=== PATIENT | female | born 1950 | race Caucasian/White ===

== ENCOUNTER 2018-06-29 10:50 | Outpatient (CLI) | payer OTHER, SELFPAY ==
[2018-06-29 11:58] LABS: CREATININE 0.73 mg/dL (0.55-1.02); Cholesterol 275 mg/dL (50-200); Glucose 104 mg/dL (70-100); HDL Cholesterol 49 mg/dL (40-60); LDL CHOLESTEROL 183 mg/dL (<100); Potassium 4.2 mmol/L (3.5-5.1); Triglyceride 181 mg/dL (30-150)
== END 2018-06-29 11:10 ==
PROVIDERS: PCP General Practice; Visit Provider General Practice
DX: Z00.00 Encounter for general adult medical examination without abnormal findings (principal); I10 Essential (primary) hypertension
CPT/HCPCS: 36415; 80061; 82947; 83721; 82565; 84132

== ENCOUNTER 2018-06-29 15:10 | Outpatient (CLI) | payer OTHER, SELFPAY ==
--- NOTE | 2018-06-29 13:01 | DI.RAD_ITS ---
SYMPTOMS/DIAGNOSIS: F/U PNEUMONIA 2 WEEKS AGO, SHORTNESS OF BREATH PA AND LATERAL CHEST: Comparison is made with October,. The heart size is normal. The aorta is mildly tortuous. The lungs appear clear. No infiltrate, effusion or mass is identified. Degenerative changes and scoliosis are noted in the spine. IMPRESSION: No acute abnormality.
== END 2018-06-29 15:30 ==
PROVIDERS: PCP General Practice; Visit Provider General Practice
DX: R06.02 Shortness of breath (principal); J18.9 Pneumonia, unspecified organism
CPT/HCPCS: 71046

== ENCOUNTER 2020-06-16 15:05 | Outpatient (REF) | payer SELFPAY ==
[2020-06-16 13:12] LABS: HCT 45.1 % (36.0-46.0); HGB 14.6 g/dL (11.2-15.7); MCH 29.9 pg (27.0-33.0); MCHC 32.4 % (32.0-36.0); MCV 92.2 fL (80-95); MPV 10.2 fL (8.0-11.0); Platelet Count 290 10^3/uL (130-400); RBC 4.89 10^6/uL (3.93-5.22); RDW 14.1 % (11.7-14.6); RDW-SD 48.2 fL; WBC 7.28 10^3/uL (4.4-10.8)
[2020-06-16 13:16] LABS: ALT 36 U/L (14-59); AST 22 U/L (15-37); Alkaline Phosphatase 67 U/L (46-116); Anion Gap 9.2 mmol/L (3-11); BUN 13 mg/dL (7-18); Bilirubin, Total 0.5 mg/dL (0.2-1.0); CO2 27.8 mmol/L (21.0-32.0); CREATININE 0.7 mg/dL (0.55-1.02); Calculated LDL 164 mg/dL (<100); Chloride 103 mmol/L (98-107); Cholesterol 247 mg/dL (<200); Glucose 110 mg/dL (74-106); HDL Cholesterol 53 mg/dL (40-60); Potassium 4.4 mmol/L (3.5-5.1); Sodium 140 mmol/L (136-145); TSH (W/Ref FT4) 0.87 uIU/mL (0.36-3.74); Total Protein 7.5 g/dL (6.4-8.2); Triglyceride 152 mg/dL (<150)
[2020-06-16 13:23] LABS: Calcium 9.2 mg/dL (8.5-10.1)
[2020-06-16 13:36] LABS: Hemoglobin A1C 5.9 % (<5.7)
== END 2020-06-16 15:06 | disposition home or self-care (01) ==
LOC: NCHCN 15:05
PROVIDERS: PCP Family Medicine; Visit Provider Family Medicine
DX: Z00.00 Encounter for general adult medical examination without abnormal findings (principal); I10 Essential (primary) hypertension; E78.5 Hyperlipidemia, unspecified
CPT/HCPCS: 80053; 80061; 85027; 83036; 84443

== ENCOUNTER 2022-08-27 01:04 | Outpatient (CLI) | payer SELFPAY ==
--- NOTE | 2022-08-27 13:53 | DI.MAMMO_ITS ---
Exam(s) US BREAST RT LIMITED MG MAMMO DIAGNOSTIC BI EXAM: MG MAMMO DIAGNOSTIC BI and U/S breast RT limited CLINICAL HISTORY: RT BREAST LUMP/MASS, N63.0, [address] AT [facility] 06/12/22. TECHNIQUE: Craniocaudal and mediolateral oblique Full Field Digital Mammography views with Computer Aided Diagnosis followed by Tomosynthesis and right breast ultrasound. COMPARISON: Comparison is made with CT scan from 06/12/2022. There are no prior mammograms at this [facility] [place] for comparison. FINDINGS: Mammography/Tomosynthesis: Masses/Architectural Distortion: There is a well-circumscribed ovoid nodule in the upper outer quadra nt of the right breast measuring 9 mm. It has a fatty notch and may represent a intraparenchymal lym ph node. This corresponds to the finding seen on the CT scan. Microcalcifictions: No suspicious pleomorphic-type are seen. Skin Thickening/Nipple Retraction: None. Limited right breast US: Echotexture: Normal appearance of the glandular tissue. Shadowing: No suspicious foci. Cyst: None. Solid lesions: At the of the right breast, there is a but sonographically benign-appearing lymph node which is hypoechoic with an echogenic eccentric notch. No suspicious nodules are seen sonographical ly. Ductal dilation: None. IMPRESSION: 1. No evidence of malignancy is noted. The nodule seen on the CT scan corresponds to an intraparenchy mal lymph node. 2. Unless there is more urgent need, follow-up screening mammography is recommended, as per [place] [employer] guidelines. 3. The findings were discussed with the patient on the date of the examination. BI-RADS Category 2 - Benign Findings Breast Density - Category B - Scattered areas of fibroglandular density Breast density Category C or D implies that the patient has dense breast tissue. Dense breast tissue can make it harder to find cancer on a mammogram. Dense breast tissue is also associated with an incr eased risk of breast cancer. This information about the result of the mammogram report was provided to the patient to raise their awareness. Use this report when you speak with the patient about their risks for breast cancer, which includes their family history. At that time, you may recommend additional screening tests (Ultrasoun d or MRI) as these tests may add significant information. A negative radiographic report should not delay biopsy if a dominant or clinically suspicious mass is present. Up to ten percent of cancers are not identified on mammography. A negative report may reinforce clinical impression. Adenosis and dense breasts may obscure an underlying neoplasm. False positive reports average 6 to 10%. Patient will receive a letter notifying them of these results.
--- NOTE | 2022-08-27 14:00 | DI.US_ITS ---
Exam(s) US BREAST RT LIMITED MG MAMMO DIAGNOSTIC BI EXAM: MG MAMMO DIAGNOSTIC BI and U/S breast RT limited CLINICAL HISTORY: RT BREAST LUMP/MASS, N63.0, [address] AT [facility] [place] 06/12/22. TECHNIQUE: Craniocaudal and mediolateral oblique Full Field Digital Mammography views with Computer Aided Diagnosis followed by Tomosynthesis and right breast ultrasound. COMPARISON: Comparison is made with CT scan from 06/12/2022. There are no prior mammograms at this ti ne for comparison. FINDINGS: Mammography/Tomosynthesis: Masses/Architectural Distortion: There is a well-circumscribed ovoid nodule in the upper outer quadra nt of the right breast measuring 9 mm. It has a fatty notch and may represent a intraparenchymal lym ph node. This corresponds to the finding seen on the CT scan. Microcalcifictions: No suspicious pleomorphic-type are seen. Skin Thickening/Nipple Retraction: None. Limited right breast US: Echotexture: Normal appearance of the glandular tissue. Shadowing: No suspicious foci. Cyst: None. Solid lesions: At the of the right breast, there is a but sonographically benign-appearing lymph node which is hypoechoic with an echogenic eccentric notch. No suspicious nodules are seen sonographical ly. Ductal dilation: None. IMPRESSION: 1. No evidence of malignancy is noted. The nodule seen on the CT scan corresponds to an intraparenchy mal lymph node. 2. Unless there is more urgent need, follow-up screening mammography is recommended, as per [place] [employer] guidelines. 3. The findings were discussed with the patient on the date of the examination. BI-RADS Category 2 - Benign Findings Breast Density - Category B - Scattered areas of fibroglandular density Breast density Category C or D implies that the patient has dense breast tissue. Dense breast tissue can make it harder to find cancer on a mammogram. Dense breast tissue is also associated with an incr eased risk of breast cancer. This information about the result of the mammogram report was provided to the patient to raise their awareness. Use this report when you speak with the patient about their risks for breast cancer, which includes their family history. At that time, you may recommend additional screening tests (Ultrasoun d or MRI) as these tests may add significant information. A negative radiographic report should not delay biopsy if a dominant or clinically suspicious mass is present. Up to ten percent of cancers are not identified on mammography. A negative report may reinforce clinical impression. Adenosis and dense breasts may obscure an underlying neoplasm. False positive reports average 6 to 10%. Patient will receive a letter notifying them of these results.
== END 2022-08-27 01:24 ==
PROVIDERS: PCP Family Medicine; Visit Provider Nurse Practitioner Family
DX: N63.0 Unspecified lump in unspecified breast (principal); R92.8 Other abnormal and inconclusive findings on diagnostic imaging of breast
CPT/HCPCS: 76642; 77062; 77066; G0279

== ENCOUNTER 2023-07-23 18:09 | Outpatient (REF) | payer SELFPAY ==
[2023-07-23 16:54] LABS: Hemoglobin A1C 5.7 % (<5.7)
[2023-07-23 17:12] LABS: ALT 24 U/L (14-59); AST 18 U/L (15-37); Albumin 4.1 g/dL (3.4-5.0); Alkaline Phosphatase 63 U/L (46-116); Anion Gap 11.6 mmol/L (3-11); BUN 19 mg/dL (7-18); Bilirubin, Total 0.5 mg/dL (0.2-1.0); CO2 27.4 mmol/L (21.0-32.0); Chloride 104 mmol/L (98-107); Cholesterol 262 mg/dL (<200); Glucose 107 mg/dL (74-106); Potassium 4.4 mmol/L (3.5-5.1); Sodium 143 mmol/L (136-145); Triglyceride 127 mg/dL (<150)
[2023-07-23 17:53] LABS: CREATININE 0.7 mg/dL (0.55-1.02); Calcium 9.8 mg/dL (8.5-10.1); Calculated LDL 176 mg/dL (<100); Estimated GFR 92.41 (mL/min/1.73m2); HDL Cholesterol 61 mg/dL (40-60)
== END 2023-07-23 18:10 | disposition home or self-care (01) ==
LOC: NCHCN 18:09
PROVIDERS: PCP Nurse Practitioner Family; Visit Provider Nurse Practitioner Family
DX: I10 Essential (primary) hypertension (principal); R73.03 Prediabetes; E78.5 Hyperlipidemia, unspecified
CPT/HCPCS: 80053; 80061; 83036

== ENCOUNTER 2024-10-20 19:02 | Outpatient (REF) | payer SELFPAY ==
[2024-10-20 17:15] LABS: Anion Gap 15.5 mmol/L (3-11); BUN 12 mg/dL (7-18); CO2 22.5 mmol/L (21.0-32.0); Calcium 9.5 mg/dL (8.5-10.1); Chloride 102 mmol/L (98-107); Estimated GFR 105.09 (mL/min/1.73m2); Glucose 106 mg/dL (74-106); Potassium 4.7 mmol/L (3.5-5.1); Sodium 140 mmol/L (136-145)
== END 2024-10-20 19:03 | disposition home or self-care (01) ==
LOC: NCHCN 19:02
PROVIDERS: PCP Family Medicine; Visit Provider Family Medicine
DX: I10 Essential (primary) hypertension (principal)
CPT/HCPCS: 80048